=== PATIENT | female | born 1955 | race Caucasian/White ===

== ENCOUNTER → 2020-08-31 11:09 | Outpatient (CLI) | payer OTHER, SELFPAY ==
[2020-08-31] MEDS: COVID-19 VACC #1, MRNA(MOD) 100 MCG/0.5 ML VIAL IM (11:15)
== END ==
PROVIDERS: Visit Provider Internal Medicine
DX: Z23 Encounter for immunization (principal)
CPT/HCPCS: 0011A; 91301

== ENCOUNTER → 2020-09-28 10:56 | Outpatient (CLI) | payer OTHER, SELFPAY ==
[2020-09-28] MEDS: COVID-19 VACC #2, MRNA(MOD) 100 MCG/0.5 ML VIAL IM (11:00)
== END ==
PROVIDERS: Visit Provider Internal Medicine
DX: Z23 Encounter for immunization (principal)
CPT/HCPCS: 0012A; 91301